=== PATIENT | female | born 1995 | race Two or more races ===

== ENCOUNTER 2023-05-25 17:55 | Emergency (ER) | payer BC ==
[~2023-05-25] VITALS: Ht 172.7 cm; Wt 90.7 kg
[2023-05-25] MEDS ORDERED: OCELLA 3 MG-0.1 EACH PO (18:37)
[2023-05-25] MEDS ORDERED: TOPAMAX50 MG PO (18:37)
[2023-05-25] MEDS ORDERED: ACETAMINOPHEN 500 MG GEL..CAP PO STA (22:03)
[2023-05-25] MEDS ORDERED: GUAIFENESIN/DEXTROMETHORPHAN 100 MG/5 ML ML PO STA (22:04)
[2023-05-26] LABS: HEMATOCRIT 40.9 % (36.0-45.00); HEMOGLOBIN 13.8 g/dL (12.0-15.00); MEAN CELL VOLUME 85.1 fL (80.00-100.00); MEAN CORPUSCULAR HEMOGLOBIN 28.8 pg (27.00-32.0); MEAN CORPUSCULAR HGB CONC 33.8 g/dl (32.0-36.0); PLATELET COUNT 171 K/uL (150-450); RED BLOOD COUNT 4.81 M/uL (4.00-6.00); RED CELL DISTRIBUTION WIDTH 12.5 % (11.5-14.5)
[2023-05-26 00:29] LABS: ALBUMIN 3.6 gm/dL (3.4-5.0); BILIRUBIN TOTAL 0.44 mg/dL (0.3-1.2); CALCIUM 9.5 mg/dL (8.5-10.1); CREATININE SERUM 1.11 mg/dL (0.55-1.02); GFR 59.89; GLOBULINA 5.1 G/DL (2.4-3.5); POTASSIUM 3.11 mEq/L (3.5-5.1); TOTAL PROTEIN 8.7 gm/dL (6.4-8.2)
[2023-05-26] MEDS ORDERED: DOLOGESIC 500-1 EACH PO (02:35)
[2023-05-26] MEDS ORDERED: ZYNCOF 400-201 EACH PO (02:35)
[2023-05-26] MEDS ORDERED: ZITHROMAX500 MG PO (02:36)
== END 2023-05-26 03:03 | disposition home or self-care (01) ==
LOC: ER 17:56
PROVIDERS: General Practice
DX: J06.9 Acute upper respiratory infection, unspecified (principal); Z20.822 Contact with and (suspected) exposure to COVID-19; Z88.8 Allergy status to other drugs, medicaments and biological substances; Z91.018 Allergy to other foods